=== PATIENT | male | born 1960 | race Hispanic/Latino ===

== ENCOUNTER 2024-03-12 12:58 | Emergency (ER) | payer OTHER ==
[~2024-03-12] VITALS: Ht 172.7 cm; Wt 68.9 kg
[2024-03-12] VITALS (8 sets, daily range): BP systolic 113–131; BP diastolic 69–86
[~2024-03-12 12:58] MED LIST: FLEXERIL OR; ULTRAM50 M1 OR
[2024-03-12] MEDS ORDERED: LIDOcaine HCl 1% (Local Anesth.) 20 ML VIAL STI STA (13:14)
[2024-03-12] MEDS ORDERED: Diph, Acellular Pertussis, Tet 0.5 ML/VIAL (Tdap) SDV IM ONE (13:15)
[2024-03-12] MEDS ORDERED: NEOMYCIN-BACITRACIN-POLYMYXIN 0.5 GM/PAK PAK TOP ONE (13:15)
[2024-03-12] MEDS ORDERED: POVIDONE IODINE 0.5 OZ/BTL TOP ONE (13:15)
[2024-03-12] MEDS ORDERED: SODIUM CHLORIDE 500 ML BTL IR ONE (13:15)
[2024-03-12] MEDS ORDERED: LIDOcaine HCl 1% (Local Anesth.) 20 ML VIAL IM STA (14:58)
[2024-03-12] MEDS ORDERED: KEFLEX500 MG PO (14:59)
[2024-03-12] MEDS ORDERED: cefTRIAXone SODIUM 1 GM/VIAL SDV IM ONE (15:00)
== END 2024-03-12 15:45 | disposition home or self-care (01) | DRG 581 ==
LOC: ED 12:58
PROC: 0JQP0ZZ Repair Left Lower Leg Subcutaneous Tissue and Fascia, Open Approach (ICD-10-PCS; principal; 2024-03-12)
DX: S81.012A Laceration without foreign body, left knee, initial encounter (principal); W29.3XXA Contact with powered garden and outdoor hand tools and machinery, initial encounter; Y93.H9 Activity, other involving exterior property and land maintenance, building and construction; Y92.007 Garden or yard of unspecified non-institutional (private) residence as the place of occurrence of the external cause
CPT/HCPCS: 90715; J0696